=== PATIENT | female | born 1995 | race Two or more races ===

== ENCOUNTER 2022-01-06 18:05 | Emergency (ER) | payer OTHER ==
[~2022-01-06] VITALS: Ht 154.9 cm; Wt 54.4 kg
[2022-01-06] MEDS ORDERED: LEVOTHYROXINE25 MCG (19:23)
== END 2022-01-06 21:56 | disposition home or self-care (01) ==
LOC: ER 18:05
DX: U07.1 COVID-19 (principal); E03.9 Hypothyroidism, unspecified

== ENCOUNTER 2022-10-27 13:16 | Emergency (ER) | payer OTHER ==
[~2022-10-27] VITALS: Ht 152.4 cm; Wt 55.8 kg
[~2022-10-27 13:16] MED LIST: LEVOTHYROXINE25 MCG
== END 2022-10-27 15:57 | disposition home or self-care (01) ==
LOC: ER 13:16
DX: R20.2 Paresthesia of skin (principal); F41.8 Other specified anxiety disorders